=== PATIENT | female | born 1960 | race Caucasian/White ===

== ENCOUNTER 2016-04-15 22:02 | Emergency (ER) | payer OTHER ==
[2016-04-15 22:53] VITALS: O2SAT 97
--- NOTE | 2016-04-15 22:54 | EDPHY ---
H & P HPI/ROS: This is a NEW patient. CHIEF COMPLAINT: Left sided rib pain with rash HISTORY OF PRESENT ILLNESS: The patient is a 55 year old female presenting with left rib pain and rash. The patient developed left sided rib pain 5 days ago. She saw her chiropractor and physical therapist which did not improve her pain. Yesterday she developed a rash below her left breast and to left posterior ribs. She took Hydrocodone which improved her pain. She denies fever or other complaints. No chest or abdominal trauma. She does not feel short of breath. REVIEW OF SYSTEMS: A 10 point review of systems was performed and is negative with the exception of the elements mentioned in the history of present illness. Source: Patient Exam Limitations: No limitations - Medical/Surgical History Other PMH: Denies. - Family History Significant Family History: No pertinent family hx - Social History Additional Social History: . Lives in [place]. No tobacco use. - Physical Exam Exam: General Appearance: Alert, no acute distress. Eyes: Pupils equal and round, no conjunctival injection, no discharge. ENT, Mouth: Mucous membranes are moist, no oropharyngeal erythema or edema. Neck: No lymphadenopathy, supple. Respiratory: Lungs are clear to auscultation; no wheezes, rales, or rhonchi. Cardiovascular: Regular rate and rhythm; no murmur, rub, or gallop. Skin: Erythematous vesicular rash in dermatomal distribution over thorax in region of 4th and 5th rib and extending onto her back (lesions on her back are erythematous and papular, without vesicles). Back: Nontender to palpation over the thoracolumbar spine. Neurological: Alert and oriented. Moving all four extremities easily and equally. Psychiatric: Normal affect. Constitutional: Initial Vital Signs Temperature (C) 36.9 C 04/15/16 22:51 Heart Rate 68 04/15/16 22:51 Respiratory Rate 18 04/15/16 22:51 Blood Pressure 137/77 H 04/15/16 22:51 O2 Sat (%) 97 04/15/16 22:51 O2 Delivery Mode Room Air Allergies/Adverse Reactions: Penicillins Allergy (Verified 04/15/16 22:48) Home Medications: Medication Instructions Recorded Acyclovir 800 mg PO 5XD #35 tab 04/15/16 Estrogens, Conjugated 04/15/16 Hydrocodone/APAP 5/325 [[place] 1 - 2 tab PO Q4 PRN #10 tab 04/15/16 5/325 (RX)] Synthroid 04/15/16 Medical Decision Making ED Course/Re-evaluation: History and physical exam consistent with diagnosis of shingles. Although she is likely out of the time range where she will benefit from antivirals will try a course of acyclovir--she has lesions in various stages of development, some of them without vesicles. She is not toxic appearing or otherwise ill. Will RX vicodin for pain. She will FU with her PCP. Addendum: This patient was seen in the urgent care setting, not the emergency department. PQRS not applicable. Differential Diagnosis: DDX includes but is not limited to shingles, impetigo, candidiasis, contact dermatitis, and drup eruption. - Data Points Medications Given: Discontinued Medications Hydrocodone Bitart/Acetaminophen ([place] 5/325mg Prepack#6) 1 btl TAKEHOME EDNOW ONE Stop: 04/15/16 22:57 Last Admin: 04/15/16 23:14 Dose: 1 btl Acyclovir (Zovirax 400 Mg Prepack #4) 1 btl TAKEHOME EDNOW ONE Stop: 04/15/16 23:15 Last Admin: 04/15/16 23:17 Dose: 1 btl Departure - Departure Disposition: Home, Routine, Self-Care Clinical Impression: Shingles Qualifiers: Herpes zoster complications: without complications Qualified Code(s): B02.9 - Zoster without complications Condition: Good Instructions: Shingles (ED) Additional Instructions: Take Acyclovir as prescribed. Take [place] as prescribed for severe pain. Adult Pain & Fever Control: We recommend Acetaminophen (Tylenol) and Ibuprofen (Motrin,Advil) for pain and fever control. When fever is high or pain severe, both drugs can be used at the same time, but at different intervals. Please note the time differences. Your dose is: Acetaminophen 650mg every 4 to 6 hours Ibuprofen 400mg every [] hours with food Note: do not take Acetaminophen with Hydrocodone (Vicodin, Lortab) or Oycodone (Percocet). These medications also contain Acetaminophen. No more than 3000mg of Acetaminophen should be taken in 24 hours (for an adult). Call your primary care physician tomorrow to arrange a followup appointment. Return to the Urgent Care if you develop fever or worsening symptoms. Referrals: Dayanna Lara MD [Medical Doctor] - As per Instructions Prescriptions: Acyclovir 800 mg PO 5XD #35 tab Hydrocodone/APAP 5/325 [[place] 5/325 (RX)] 1 - 2 tab PO Q4 PRN #10 tab PRN Reason: pain Report Scribed for: Paula Lyman Report Scribed by: Vane Arias Date of Report: 04/15/16 Time of Report: 22:57
[2016-04-15] MEDS ORDERED: HYDROCOD/APAP 5/325 PREPACK#6 BTL TAKEHOME ONE (22:56)
[2016-04-15] MEDS ORDERED: ACYCLOVIR 400 MG PREPACK#4 BTL TAKEHOME ONE ×2 (23:06→23:14)
[2016-04-15 23:25] VITALS: BP 133/68; PULSE 72; RESP 20; TEMP 98.2
== END 2016-04-15 23:25 | disposition home or self-care (01) ==
LOC: CED 22:02
DX: B02.9 Zoster without complications (principal)
CPT/HCPCS: G0463-PO

== ENCOUNTER → 2016-08-21 | Outpatient (CLI) | payer OTHER | LOC: FIMAGING 09:36 | PROVIDERS: ATTEND Obstetrics & Gynecology | DX: Z12.31 Encounter for screening mammogram for malignant neoplasm of breast (principal) | CPT/HCPCS: G0202 ==

== ENCOUNTER → 2017-10-09 | Outpatient (CLI) | payer OTHER | LOC: FIMAGING 10:16 | PROVIDERS: ATTEND Obstetrics & Gynecology | DX: Z12.31 Encounter for screening mammogram for malignant neoplasm of breast (principal) ==

== ENCOUNTER → 2018-01-25 | Outpatient (CLI) | payer OTHER | LOC: FIMAGING 11:15 | PROVIDERS: ATTEND Obstetrics & Gynecology | DX: Z13.820 Encounter for screening for osteoporosis (principal); Z78.0 Asymptomatic menopausal state; E03.9 Hypothyroidism, unspecified; Z79.890 Hormone replacement therapy ==